=== PATIENT | male | born 1960 | race Caucasian/White ===

== ENCOUNTER 2017-05-04 15:25 | Emergency (ER) | payer OTHER | END 2017-05-04 18:09 | disposition left against medical advice (07) | LOC: D.ER 15:25 | DX: I10 Essential (primary) hypertension (principal) ==

== ENCOUNTER 2017-07-26 08:50 | Outpatient (CLI) | payer OTHER ==
[~2017-07-26] VITALS: Ht 170.2 cm; Wt 68.2 kg
--- NOTE | ~2017-07-26 | HEMODYNAMI ---
PATIENT:CARL GAY MEDICAL RECORD: [id number] : 58 LOCATION:DGianfrancoCAT ADMISSION DATE: 07/26/17 Generatedon:07/26/201711:11 Patient name: CARL GAY Patient #: [id number] SSN: : 1960 Date of study: 07/26/2017 Page: Of Hemodynamic Procedure Report Patient Data Patient Demographics Procedure consent was obtained First Name: CARL Gender: Male Last Name: DEIDRA : 1960 [facility] Initial: E Age: 56 year(s) Patient #: [id number] Race: Unknown Additional ID: [id number] Contact details Address: [facility] [address] State: [place] City: [place] Zip code: [address] Past Medical History Allergies: No known allergies Admission Admission Data Admission Date: 07/26/2017 Admission Time: 8:50 Lab Results Lab Result Date: 07/26/2017 Lab Result Time: 9:30 Biochemistry Name Units Result Min Max BUN mg/dl 15 --(--*-)-- 7 18 Creatinine mg/dl 1.1 --(--*-)-- 0.6 1.3 CBC Name Units Result Min Max Hematocrit % 45.7 --(-*--)-- 42 54 Hemoglobin g/dl 16 --(--*-)-- 13.5 17.5 Procedure Procedure Types Cath Procedure Diagnostic Procedure [facility] w/Coronaries Miscellaneous Procedures Moderate Sedation up to 15 minutes Peripheral Cath Diagnostic Procedure Cath Peripheral Renal Arteriogram Procedure Description Procedure Date Procedure Date: 07/26/2017 Procedure Start Time: 11:00 Procedure End Time: 11:10 Procedure Staff Name Function James Jimenez MD Performing Physician Bob Rod RT Monitor Simi Merrill RT Scrub Mckay Foster RN Nurse Procedure Data Cath Procedure Fluoroscopy Diagnostic fluoroscopy Total fluoroscopy Time: 1 time: 1 min min Diagnostic fluoroscopy Total fluoroscopy dose: 257 dose: 257 mGy mGy Contrast Material Contrast Material Type Amount (ml) Isovue 300 59 Entry Location Entry Primary Successful Side Size Upsize Upsize Entry Closure Succes sful Closure Location (Fr) 1 (Fr) 2 (Fr) Remarks Device Remarks Femoral Right 6 Fr Exoseal artery Short Estimated blood loss: 5 ml Diagnostic catheters Device Type Used For End Catheter Placement MULTIPACK Pigtail 5 Fr Procedure catheter MULTIPACK JL 4.0 5Fr Procedure catheter MULTIPACK 3DRC 5Fr Procedure catheter Procedure Complications No complications Procedure Medications Medication Administration Route Dosage 0.9% NaCl I.V. 100 ml Oxygen NC 2 l/min Heparin Flush Bag added to field 2 bags (1000units/500ml NS) Lidocaine 2% added to field 20 Versed I.V. 2 mg Fentanyl I.V. 100 mcg Fentanyl I.V. 50 mcg Versed I.V. 1 mg Versed I.V. 1 mg Fentanyl I.V. 50 mcg Hemodynamics Rest HGB: 16 (g/dl) Heart Rate: 63 (bpm) Snapshots Pre Cath Intra NCS Post Cath Vital Signs Time Heart Resp SPO2 etCO2 NIBP (mmHg) Rhythm Pain Sedation Rate (ipm) (%) (mmHg) Status Level (bpm) 10:36:50 57 18 98 39.2 162/90(138) NSR 0 (11) 10(A) , No pain 10:41:32 60 16 96 39.2 164/99(132) NSR 0 (11) 10(A) , No pain 10:46:13 61 16 98 26.4 145/94(112) NSR 0 (11) 10(A) , No pain 10:50:52 57 19 97 37.8 149/88(116) NSR 0 (11) 10(A) , No pain 10:55:30 58 16 97 38.5 155/93(122) NSR 0 (11) 10(A) , No pain 11:00:11 58 19 98 36.3 147/91(113) NSR 0 (11) 10(A) , No pain 11:04:51 58 18 96 39.2 146/85(116) NSR 0 (11) 10(A) , No pain 11:09:30 59 11 97 37 143/87(119) NSR 0 (11) 10(A) , No pain Medications Time Medication Route Dose Verified Delivered Reason Notes Effe ctiveness by by 10:34:46 0.9% NaCl I.V. 100 Mckay Mckay Per ml Kristin Foster physician RN RN 10:35:35 Oxygen NC 2 Mckay Mckay Per l/min Kristin Foster physician RN RN 10:35:46 Heparin Flush added 2 Mckay Mckay used for Bag to bags Lorigan Lorigan procedure (1000units/500ml field RN RN NS) 10:35:57 Lidocaine 2% added 20ml Mckay Mckay for local to vial Lorigan Lorigan anesthetic field RN RN 10:55:05 Versed I.V. 2 mg Mckay Mckay for Lorigan Lorigan sedation RN RN 10:55:15 Fentanyl I.V. 100 Mckay Mckay for mcg Lorigan Lorigan sedation RN RN 10:59:22 Fentanyl I.V. 50 Mckay Mckay for mcg Lorigan Lorigan sedation RN RN 10:59:32 Versed I.V. 1 mg Mckay Mckay for Lorigan Lorigan sedation RN RN 11:00:23 Versed I.V. 1 mg Mckay Mckay for Lorigan Lorigan sedation RN RN 11:06:17 Fentanyl I.V. 50 Mckay Mckay for mcg Lorigan Lorigan sedation RN pumper hand Log Time Note 10:16:56 Mckay Foster RN sent for patient. Start room use. 10:16:58 Time tracking: Regular hours 10:17:03 Plan of Care:Hemodynamics will remain stable., Cardiac rhythm will remain stable., Comfort level will be maintained., Respiratory function will remain adequate., Patient/ family verbilizes understanding of procedure., Procedure tolerated without complication., Recovers from procedure without complications.. 10:17:05 Diagnostic Cath status Elective 10:17:07 Signed procedure consent form obtained from patient. 10:23:30 Patient received from Pre/Post Procedure Room to CCL 1 Alert and oriented. Tansferred to table in Supine position. 10:23:31 Warm blankets applied, and topher hugger turned on for patient comfort. 10:23:32 Correct patient and procedure confirmed by team. 10:23:33 ECG and BP/O2 sat monitors applied to patient. 10:34:46 0.9% NaCl 100 ml I.V. was administered by Mckay Foster RN; Per physician; 10:35:35 Oxygen 2 l/min NC was administered by Mckay Foster RN; Per physician; 10:35:46 Heparin Flush Bag (1000units/500ml NS) 2 bags added to field was administered by Mckay Foster RN; used for procedure; 10:35:55 Vital chart was started 10:35:57 Lidocaine 2% 20ml vial added to field was administered by Mckay Foster RN; for local anesthetic; 10:36:06 Baseline sample Acquired. 10:36:12 Rhythm: sinus rhythm 10:36:13 Full Disclosure recording started 10:36:29 H&P Date Dictated: 06/30/2017 Within 30 days and on chart., H&P Addendum completed by physician on day of procedure. (MUST COMPLETE FOR ALL OUTPATIENTS). 10:36:30 Pre-procedure instructions explained to patient. 10:36:31 Pre-op teaching completed and patient verbalized understanding. 10:36:32 Family in waiting room. 10:36:34 Patient NPO since Midnight. 10:36:39 Patient allergic to No known allergies 10:36:42 Is the patient allergic to Iodine/contrast media? No. 10:36:43 Is patient on blood thinner?No 10:36:44 Patient diabetic? No. 10:36:47 Previous problem with sedation/anesthesia? No ? 10:36:49 Snore? Yes 10:36:49 Sleep apnea? Yes 10:36:51 Deviated septum? No 10:36:51 Opens mouth fully? Yes 10:36:52 Sticks out tongue? Yes 10:36:55 Airway obstruction? No ? 10:36:56 Dentures? No ? 10:37:00 Pre procedure: right posterior tibial pulse 2+ Normal; easily identifiable; not easily obliterated 10:37:02 Patient pain scale 0/10 ?. 10:37:12 IV patent on arrival in left wrist with 0.9% NaCl at [facility]. 10:38:53 Lab Result : Creatinine 1.1 mg/dl 10:38:53 Lab Result : BUN 15 mg/dl 10:38:53 Lab Result : Hemoglobin 16 g/dl 10:38:53 Lab Result : Hematocrit 45.7 % 10:38:56 Lab results completed and on chart. 10:38:59 Right groin area was prepped with chlora-prep and draped in sterile fashion 10:39:00 Alarms reviewed by R. N. 10:39:01 Sharps counted by scrub and verified by RGianfrancoN. 10:39:04 Use device set Femoral Dx 10:39:06 ACIST Syringe (73244) opened to sterile field. 10:39:12 Bag Decanter (2002S) opened to sterile field. 10:39:13 Medline Cath Pack ([id number]) opened to sterile field. 10:39:17 ACIST Manifold (02619) opened to sterile field. 10:39:18 ACIST Hand Control (20988) opened to sterile field. 10:39:21 Tegaderm 4 x 4 (1626W) opened to sterile field. 10:39:23 PERCUTANEOUS ENTRY 19GA needle opened to sterile field. 10:39:27 DIAGNOSTIC Multipack 5Fr catheter set (SC0589) opened to sterile field. 10:39:28 SHEATH 5FR [place] (UAD398) opened to sterile field. 10:39:28 DIAGNOSTIC WIRE .035 260cm J wire (578883) opened to sterile field. 10:39:31 EXOSEAL 5Fr (EX500) opened to sterile field. 10:43:41 Zero performed for pressure channel P1 10:54:08 Physician arrived 10:54:08 --------ALL STOP TIME OUT------ 10:54:08 Final Timeout: patient, procedure, and site verified with staff and physician. All members of the team are in agreement. 10:54:10 Right groin site verified by team. 10:54:13 Physical assessment completed. ASA score P 2 - A patient with mild systemic disease as per James Jimenez MD. 10:54:16 Sedation plan: IV Moderate Sedation Medication:Versed, Fentanyl 10:55:05 Versed 2 mg I.V. was administered by Mckay Fosetr RN; for sedation; 10:55:15 Fentanyl 100 mcg I.V. was administered by Mckay Foster RN; for sedation; 10:59:22 Fentanyl 50 mcg I.V. was administered by Mckay Foster RN; for sedation; 10:59:32 Versed 1 mg I.V. was administered by Mckay Foster RN; for sedation; 10:59:58 Procedure started. 11:00:01 Local anesthetic to right femoral artery with Lidocaine 2% by James Jimenez MD.INITIAL ACCESS ONLY 11:00:09 A 6 Fr Short sheath was inserted into the Right Femoral artery 11:00:23 Versed 1 mg I.V. was administered by Mckay Foster RN; for sedation; 11:00:56 A MULTIPACK Pigtail 5 Fr catheter was advanced over the wire and used for Procedure. 11:01:14 LV gram done using BAIG 11::18 Injector settings: Ml/sec: 102, Volume: 0, 11::24 EF : 60 % 11::25 Catheter exchanged over wire. 11::31 A MULTIPACK JL 4.0 5Fr catheter was advanced over the wire and used for Procedure. 11:02:13 LCA angiography performed. 11:03:19 Catheter exchanged over wire. 11:03:24 A MULTIPACK 3DRC 5Fr catheter was advanced over the wire and used for Procedure. 11:03:49 RCA angiography performed. 11:04:21 Left renal angiography performed. 11:04:22 Right renal angiography performed. 11:04:44 Catheter removed. 11:04:52 Sheath removed intact; hemostasis achieved with Exoseal to the Right Femoral artery. 11:04:54 Procedure ended.(Physican Out) 11:06:08 Fluoroscopy time 01.00 minutes. 11:06:17 Fentanyl 50 mcg I.V. was administered by Mckay Foster RN; for sedation; 11::25 Fluoroscopy dose: 257 mGy 11:06:25 Flurop Dose total: 257 11:06:29 Contrast amount:Isovue 300 59ml. 11:06:31 Sharps counted by scrub and verified by R.N. 11:06:33 Insertion/operative site no bleeding no hematoma. 11:06:36 Post-op/insertion site Right Femoral artery dressed using a 4 x 4 and Tegaderm. 11:06:40 Post right femoral artery:stable, soft, clean and dry 11:06:42 Post Procedure Pulses reassessed and unchanged 11:06:45 Post-procedure physical assessment completed. ASA score P 2 - A patient with mild systemic disease as per James Jimenez MD. 11:06:47 Post procedure rhythm: unchanged. 11:06:49 Estimated blood loss: 5 ml 11:07:52 Post procedure instruction explained to patient.Patient verbalizes understanding. 11:07:53 Patient needs reinforcement of post procedure teaching. 11:10:13 Procedure and supply charges have been captured, reviewed, submitted and are correct. 11:10:22 Procedure Complication : No complications 11:10:24 Vital chart was stopped 11:10:25 See physician's report for complete and final results. 11:10:27 Report given to Pre/Post Procedure Room. 11:10:29 Patient transfered to Pre/Post Procedure Room with Stretcher. 11:10:35 Procedure ended. 11:10:35 Full Disclosure recording stopped 11:10:41 End room use (Document Last) Device Usage Item Name Manufacture Quantity Catalog Hospital Part Current Minimal Lot# / Number Charge Number Stock Stock Serial# Code ACIST Acist 1 91660 [id number] 271825 [id number] 20 Syringe Medical (51674) Systems Inc Bag Decanter Microtek 1 2001S 399333 20339 367658 5 (2001S) Medical Inc. Medline Cath Cardinal 1 [id number] 471231 89897 380475 5 Pack Health ([id number]) ACIST Acist 1 73204 038527 549707 666248 5 Manifold Medical (47192) Systems Inc ACIST Hand Acist 1 98028 945259 087202 116939 5 Control Medical (71872) Systems Inc Tegaderm 4 x 3M 1 1626W 889498 007506 454132 5 4 (1626W) PERCUTANEOUS Cook Medical 1 R46195 465507 337783 5 ENTRY 19GA needle DIAGNOSTIC Cardinal 1 [id number] 769766 99893 662273 30 Multipack Health 5Fr catheter set (UB2669) SHEATH 5FR Terumo 1 IHM699 464310 623058 789191 40 [place] (JST837) DIAGNOSTIC St [place]ke 1 107403 636874 234752 465906 30 WIRE .035 260cm J wire (856626) EXOSEAL 5Fr Cardinal 1 EX500 281742 851114 985208 10 (EX500) Health MULTIPACK Cardinal 1 295941 5 Pigtail 5 Fr Health catheter MULTIPACK JL Cardinal 1 029304 5 4.0 5Fr Health catheter MULTIPACK Cardinal 1 585908 5 3DRC 5Fr Health catheter Signature Audit [place] Stage Time Signature Unsigned Intra-Procedure 07/26/2017 Bob Rod 11:11:16 AM RT(R) Signatures Monitor : Bob Rod RT Signature : Date : Time : [place] [address] [place] [address]
[2017-07-26] MEDS ORDERED: NORVASC5 MG PO (09:11)
[2017-07-26] MEDS ORDERED: LISINOPRIL2.5 MG PO (09:12)
[2017-07-26] MEDS ORDERED: CARDURA1 MG PO (09:13)
[2017-07-26] MEDS ORDERED: K-DUR20 MEQ PO (09:14)
[2017-07-26] MEDS ORDERED: TOPROL XL25 MG PO (09:14)
[2017-07-26] MEDS ORDERED: VALIUM5 MG PO (09:14)
[2017-07-26] MEDS ORDERED: CIALIS5 MG PO (09:15)
[2017-07-26 09:17] VITALS: BP 172/105; Ht 170.2 cm; Wt 68.2 kg
[2017-07-26 09:36] LABS: BASOPHILS 0.6 % (0-2); EOSINOPHILS 2.2 % (0-7); HEMATOCRIT 45.7 % (42.0-54.0); LYMPHOCYTES 36.4 % (15-50); MCH 31.5 pg (26.0-34.0); MEAN PLATELET VOLUME 8.2 fL (7.4-10.4); NEUTROPHILS 50.8 % (40-80); RBC 5.08 10x6/uL (4.20-6.10); RDW 12.4 % (11.5-14.5); WBC 3.2 10x3/uL (4.8-10.8)
[2017-07-26 09:41] LABS: PLATELET COUNT 183 10x3/uL (130-400)
[2017-07-26 09:52] LABS: ANION GAP 13.1 mmol/L (8-16); CALCIUM 9.1 mg/dL (8.5-10.1); CARBON DIOXIDE 28.8 mmol/L (21.0-32.0); CREATININE - SERUM 1.1 mg/dL (0.6-1.3)
[2017-07-26 09:55] LABS: POTASSIUM - SERUM 2.9 mmol/L (3.5-5.1)
--- NOTE | 2017-07-26 11:35 | NUR ---
2L NC, NO RESP DISTRESS. RIGHT GROIN 5F EXOSEAL CDI, NO BLEEDING OR HEMATOMA NOTED. NO C/O PAIN OR NAUSEA. VSS. FAMILY AT BEDSIDE, CALL LIGHT WITHIN REACH.
--- NOTE | 2017-07-26 12:05 | NUR ---
RIGHT GROIN 5F EXOSEAL CCI, NO BLEEDING OR HEMATOMA NOTED. EATING SANDWICH AND SIPPING DRINK WITH NO C/O NAUSEA. VSS. CALL LIGHT WITHIN REACH.
--- NOTE | 2017-07-26 12:15 | OP ---
PATIENT NAME: CARL GAY MEDICAL RECORD: [id number] :58 LOCATION:D.CAT ADMISSION DATE: SURGEON: DREW ROSENBAUM MD DATE OF OPERATION: 07/26/2017 PROCEDURES: 1. Left heart catheterization. 2. Selective coronary angiography. 3. Left ventriculogram. INDICATION: Angina and coronary artery disease. PROCEDURE IN DETAIL: After informed consent was obtained and after detailed explanation of risks, benefits as well as alternative therapies, the patient elected to proceed with angiogram and heart catheterization. The right femoral area was prepped and draped in normal sterile fashion. The right femoral artery was cannulated via modified Seldinger technique with placement of 5-Yakut sheath. All catheters exchanged through this sheath. FINDINGS: Left ventriculogram was performed in standard 30-degree BAIG view, reveals good cardiac wall motion throughout all segments. Overall ejection fraction estimated at 55% to 60%. SELECTIVE CORONARY ANGIOGRAPHY: 1. Left main showed no significant angiographic disease. 2. Left anterior descending has zcmk-xo-riduczxf irregularities, no stenosis greater than 30%, no flow-limiting stenosis. 3. Left circumflex has bhnr-ml-cvfxdmlj irregularities, but no flow-limiting stenosis, no stenosis greater than 30%. 4. Right coronary has mild irregularities, no stenosis greater than 30%, no flow-limiting stenosis. OVERALL IMPRESSION: Minimal coronary artery disease is present. No flow-limiting stenosis. Symptomatology is not secondary to hemodynamically significant coronary artery disease at this time. TRANSINT:[id number] Voice Confirmation ID: [id number] DOCUMENT ID: [id number] DREW ROSENBAUM MD at 1215 CC: [id number] DICTATION DATE: 07/26/17 1119 BATHROOM TILING PROFESSIONAL: 07/26/17 1139 REG [facility] [address] [place] [address]
--- NOTE | 2017-07-26 12:15 | OP ---
PATIENT NAME: CARL GAY MEDICAL RECORD: [id number] :58 LOCATION:D.CAT ADMISSION DATE: SURGEON: DREW ROSENBAUM MD DATE OF OPERATION: 07/26/2017 DATE OF SERVICE: 07/26/2017 PROCEDURE: Bilateral selective renal angiography. INDICATION: Out of control hypertension despite multiple medications. DESCRIPTION OF PROCEDURE: The right femoral area had a preexisting sheath from coronary angiography. All catheters exchanged through this sheath. Each renal artery was selectively engaged. FINDINGS: 1. The right renal artery is a solitary artery off the aorta with no significant renal artery stenosis. No pressure damping at the ostium. 2. The left renal artery is a solitary artery off the aorta with no significant pressure damping and no renal artery stenosis. OVERALL IMPRESSION: No renal artery stenosis is present. Hypertension is essential hypertension. Continue medical management of the essential hypertension. TRANSINT:[id number] Voice Confirmation ID: [id number] DOCUMENT ID: [id number] DREW ROSENBAUM MD at 1215 CC: [id number] DICTATION DATE: 07/26/17 1120 DEPUTY CHIEF EXECUTIVE: 07/26/17 1210 REG [facility] [address] [place] [address]
--- NOTE | 2017-07-26 12:53 | NUR ---
HOB ELEVATED 30 DEGREES. RIGHT GROIN 5F EXOSEAL CDI, NO BLEEDING OR HEMATOMA NOTED.
--- NOTE | 2017-07-26 13:15 | NUR ---
LEFT FA PIV D/C'D WITH CATHETER INTACT, BAND AID TO SITE. UP TO BEDSIDE TO GET DRESSED.
--- NOTE | 2017-07-26 13:20 | NUR ---
DISCHARGE INSTRUCTIONS GIVEN, VERBALIZED UNDERSTANDING.
--- NOTE | 2017-07-26 13:30 | NUR ---
TAKEN OUT VIA WHEELCHAIR BY CATH BIOMASS PRODUCTION MANAGER. LEFT FACILITY WITH FAMILY AND ALL PERSONAL BELONGINGS.
== END 2017-07-26 13:30 | disposition home or self-care (01) ==
LOC: D.CATH 08:50
PROVIDERS: Internal Medicine Interventional Cardiology
DX: I25.119 Atherosclerotic heart disease of native coronary artery with unspecified angina pectoris (principal); I10 Essential (primary) hypertension; Z79.899 Other long term (current) drug therapy; Z01.812 Encounter for preprocedural laboratory examination